=== PATIENT | male | born 1980 | race Hispanic/Latino ===

== ENCOUNTER 2022-01-16 19:20 | Emergency (ER) | payer BC ==
[2022-01-16] MEDS ORDERED: TETANUS & DIPHTHERIA TOX,ADULT 0.5 ML VIAL ONE (20:11)
[2022-01-16] MEDS ORDERED: IBUPROFEN 400 MG TAB ONE (21:06)
--- NOTE | 2022-01-16 21:10 | RAD REPORT ---
EXAM DESCRIPTION: CR - Finger-Thumb Left - 01/16/2022 8:56 pm CLINICAL HISTORY: PAIN COMPARISON: Lumbar Spine 3 Views dated 01/23/2016 FINDINGS: Linear fracture is seen involving the distal phalanx of the first finger. This extends int o the interphalangeal joint.
--- NOTE | 2022-01-16 21:24 | ER ---
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 Coronavirus screen: Vaccine status: Patient reports being unvaccinated. At this time, the client does not indicate any symptoms associated with coronavirus-19. Ebola Screen: Patient negative for fever greater than or equal to 101.5 degrees Fahrenheit, and additional compatible Ebola Virus Disease symptoms. Initial Sepsis Screen: Does the patient meet any 2 criteria? No. Patient's initial sepsis screen is negative. Does the patient have a suspected source of infection? No. Patient's initial sepsis screen is negative. Risk Assessment: Do you want to hurt yourself or someone else? Patient reports no desire to harm self or others. Onset of symptoms was January 16, 2022. 19:34 Method Of Arrival: Ambulatory [facility] 19:34 Acuity: ASHOK 4 [facility] Triage Assessment: 19:35 General: Appears in no apparent distress. uncomfortable, Behavior is calm, cooperative, [facility] appropriate for age. Pain: Complains of pain in palmar aspect of distal phalanx of left thumb. Musculoskeletal: Circulation, motion, and sensation intact. 22:05 Injury Description: Crush injury sustained to palmar aspect of distal phalanx of left lg3 thumb. Historical: - Allergies: 19:35 NKDA; [facility] - Home Meds: 19:35 None [Active]; 1 - PMHx: 19:35 None; 1 - PSHx: 19:35 None; [facility] - Immunization history:: Last tetanus immunization: not indicated for visit today. - Social history:: Smoking status: Patient denies any tobacco usage or history of. Screenin:12 Abuse screen: Denies threats or abuse. Nutritional screening: No deficits noted. bb Tuberculosis screening: No symptoms or risk factors identified. Fall Risk None identified. Assessment: 21:12 General: Appears in no apparent distress. uncomfortable, Behavior is calm, cooperative. bb Pain: Complains of pain in palmar aspect of distal phalanx of left thumb. Neuro: Level of Consciousness is awake, alert, obeys commands, Oriented to person, place, time, situation. Cardiovascular: No deficits noted. Respiratory: Respiratory effort is even, unlabored. GI: No signs and/or symptoms were reported involving the gastrointestinal system. Derm: Skin is pink, warm \T\ dry. Musculoskeletal: Circulation, motion, and sensation intact. Reports pain in palmar aspect of distal phalanx of left thumb. Vital Signs: 19:34 BP 132 / 94; Pulse 95; Resp 18; Temp 98.7(O); Pulse Ox 100% on R/A; Weight 77.11 kg; 1 Height 5 ft. 9 in. (175.26 cm); Pain 10/10; 19:34 Body Mass Index 25.10 (77.11 kg, 175.26 cm) [facility] ED Course: 19:24 Patient arrived in ED. bp1 19:35 Triage completed. [facility] 19:35 Arm band placed on right wrist. [facility] 19:50 Juan R Negrete PA is PHCP. cp 19:50 Desmond Serrano MD is Attending Physician. cp 20:58 Finger-Thumb LEFT XRAY In Process Unspecified. EDMS 21:12 Yina Florentino, FLORENTIN is Primary Nurse. bb 21:12 Patient has correct armband on for positive identification. bb 21:21 Thaddeus Mcdonnell MD is Referral Physician. cp 22:04 Assist provider with fracture care of palmar aspect of distal phalanx of left thumb lg3 Immobilized with preformed splint, Patient tolerated well. Patient did not have IV access during this emergency room visit. 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 Exp: [facility] 09/15/2023. Lot #: [id number]. } Route: IM; Site: right deltoid; 20:12 Follow up: Response: No adverse reaction 1 21:37 Follow up: Response: No adverse reaction bb 20:59 Not Given (Patient Refused): Hydrocodone-Acetaminophen (7.5 mg-325 mg) 1 tabs PO once; bb RASS on ADMIN: Combtv4, Very Agttd3, Agttd2, Rstlss1, AlertClm0, Drwsy-1, Lt Sdtn-2, Mod Sdtn-3, Dp Sdtn-4, UnArsble-5 20:59 Drug: Ibuprofen 800 mg Route: PO; bb 22:04 Follow up: Response: No adverse reaction lg3 Medication: 21:35 Vaccine Information Statement (VIS) provided today. Questions and/or concerns bb addressed. VIS edition date: January 26, 2021. Outcome: 21:23 Discharge ordered by . narendra 22:05 Discharged to home ambulatory. lg3 22:05 Condition: stable 22:05 Discharge instructions given to patient, Instructed on discharge instructions, follow up and referral plans. medication usage, Demonstrated understanding of instructions, follow-up care, medications, Prescriptions given X 2. 22:06 Patient left the ED. lg3 Signatures: Dispatcher [employer] EDMS Yina Florentino RN RN bb Juan R Negrete PA PA cp Gibson, Lacie, RN RN lg3 Mary Ann Vincent Barbara, RN RN 1
--- NOTE | 2022-01-16 21:24 | EDPHYS ---
Physician Documentation [facility] Name: Anthony Rayo Age: 41 yrs Sex: Male : 1980 Arrival Date: 01/16/2022 Time: 19:24 Bed DIS2 Private MD: ED Physician Desmond Serrano HPI: 01/16 21:00 This 41 yrs old Male presents to ER via Ambulatory with complaints of Finger cp Injury. 21:00 The patient or guardian reports injury. The complaints affect the distal phalanx of cp left thumb. 21:00 Context: The problem was sustained at home, resulted from a crush injury, between cp blocks of wood while using saw. Onset: The symptoms/episode began/occurred today. Associated signs and symptoms: The patient has no apparent associated signs or symptoms. Historical: - Allergies: 19:35 NKDA; bh1 - Home Meds: 19:35 None [Active]; bh1 - PMHx: 19:35 None; bh1 - PSHx: 19:35 None; bh1 - Immunization history:: Last tetanus immunization: not indicated for visit today. - Social history:: Smoking status: Patient denies any tobacco usage or history of. ROS: 21:05 Constitutional: Negative for body aches, chills, fever, poor PO intake. cp 21:05 Eyes: Negative for injury, pain, redness, and discharge. cp 21:05 Cardiovascular: Negative for chest pain. 21:05 Respiratory: Negative for cough, shortness of breath, wheezing. 21:05 Abdomen/GI: Negative for abdominal pain, nausea, vomiting, and diarrhea. 21:05 MS/extremity: Positive for pain, swelling, tenderness, of the left thumb, Negative for paresthesias. 21:05 All other systems are negative. Exam: 21:10 Constitutional: The patient appears in no acute distress, alert, awake, non-toxic, well cp developed, well nourished. 21:10 Head/Face: Normocephalic, atraumatic. cp 21:10 Chest/axilla: Inspection: normal. 21:10 Cardiovascular: Rate: normal. 21:10 Respiratory: the patient does not display signs of respiratory distress, Respirations: normal. 21:10 Back: pain, is absent. 21:10 Musculoskeletal/extremity: Extremities: noted in the left thumb: moderate circumferential swelling extending from proximal to distal phalanx limiting ROM, nail intact, abrasion noted dorsum proximal phalanx, neurovascular intact. Vital Signs: 19:34 BP 132 / 94; Pulse 95; Resp 18; Temp 98.7(O); Pulse Ox 100% on R/A; Weight 77.11 kg; [facility] Height 5 ft. 9 in. (175.26 cm); Pain 10/10; 19:34 Body Mass Index 25.10 (77.11 kg, 175.26 cm) [facility] MDM: 20:33 Patient medically screened. cp 21:23 Data reviewed: vital signs, nurses notes, radiologic studies, plain films. cp 21:23 Test interpretation: by ED physician or midlevel provider: plain radiologic studies. cp Counseling: I had a detailed discussion with the patient and/or guardian regarding: the historical points, exam findings, and any diagnostic results supporting the discharge/admit diagnosis, radiology results, the need for outpatient follow up, for definitive care, a hand specialist, to return to the emergency department if symptoms worsen or persist or if there are any questions or concerns that arise at home. Response to treatment: the patient's symptoms have mildly improved after treatment, VSS. Pain improved with meds. Left thumb splinted, sugar tong type, with aluminum. Will discharge to home for continued monitoring. 01/16 19:33 Order name: Finger-Thumb LEFT XRAY; Complete Time: 21:16 [facility] 01/16 21:16 Interpretation: Report reviewed. 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 Exp: [facility] 09/15/2023. Lot #: [id number]. } Route: IM; Site: right deltoid; 20:12 Follow up: Response: No adverse reaction [facility] 21:37 Follow up: Response: No adverse reaction 20:59 Not Given (Patient Refused): Hydrocodone-Acetaminophen (7.5 mg-325 mg) 1 tabs PO once; bb RASS on ADMIN: Combtv4, Very Agttd3, Agttd2, Rstlss1, AlertClm0, Drwsy-1, Lt Sdtn-2, Mod Sdtn-3, Dp Sdtn-4, UnArsble-5 20:59 Drug: Ibuprofen 800 mg Route: PO; bb 22:04 Follow up: Response: No adverse reaction lg3 Disposition: 01/17 04:27 Co-signature as Attending Physician, Desmond Serrano MD I agree with the assessment and kdr plan of care. Disposition Summary: 01/16/22 21:23 Discharge Ordered Location: Home cp Problem: new cp Symptoms: have improved cp Condition: Stable cp Diagnosis - Nondisplaced fracture of distal phalanx of left thumb, initial encounter for closed cp fracture Followup: cp - With: Thaddeus Mcdonenll MD - When: 2 - 3 days - Reason: Recheck today's complaints Discharge Instructions: - Discharge Summary Sheet cp - Thumb Fracture cp Forms: - Medication Reconciliation Form cp - Thank You Letter cp - Antibiotic Education cp - Prescription Opioid Use cp Prescriptions: - Ibuprofen 800 mg Oral Tablet - take 1 tablet by ORAL route every 8 hours As needed take with food; 30 tablet; cp Refills: 0, Product Selection Permitted - Tylenol-Codeine #3 300 mg-30 mg Oral - take 2 tablet by ORAL route every 8-10 hours; 20 tablet; Refills: 0, Product cp Selection Permitted Signatures: Dispatcher [employer] Desmond Rubio MD MD kdr Ballard, Brenda, RN RN Juan R Bright PA PA cp Danuta Downs RN RN 1 Carolina Potts RN lg3
[2022-01-16 23:22] VITALS: BP 132/94; TEMP 98.7; O2SAT 100
== END 2022-01-16 22:06 | disposition home or self-care (01) ==
LOC: ER 19:20
PROC: 2W3HX1Z Immobilization of Left Thumb using Splint (ICD-10-PCS; principal; 2022-01-16)
DX: S62.525A Nondisplaced fracture of distal phalanx of left thumb, initial encounter for closed fracture (principal); Z23 Encounter for immunization
CPT/HCPCS: 90471; 90714; 99284